=== PATIENT | female | born 1995 | race Caucasian/White ===

== ENCOUNTER 2025-01-20 11:30 | Observation (INO) | payer OTHER, SELFPAY ==
[2025-01-20] VITALS (21 sets, daily range): BP systolic 99–123; BP diastolic 59–79; PULSE 72–105; RESP 16–18; TEMP 35.5–36.7; O2SAT 97–100; BMI 39.0
--- NOTE | ~2025-01-20 | US_ITS ---
EXAMINATION: US abdomen limited DATE: 01/20/2025 14:45 INDICATION: Upper abdominal pain and vomiting. TECHNIQUE: Multiple grayscale and Doppler ultrasound images of the abdomen were obtained. COMPARISON: None FINDINGS: The pancreatic head and body are normal in appearance. The pancreatic tail is not visualized. Liver has normal contour, with a smooth surface. There is increased parenchymal echogenicity and coarsened echotexture consistent with diffuse hepatic steatosis. No liver lesion identified. No intrahepatic biliary duct dilation suspected. Portal venous flow was seen in the hepatopetal, normal direction and has normal Doppler waveform. The visualized proximal to mid inferior vena cava and aorta are normal. The gallbladder is normal in appearance. There is no cholelithiasis. The common bile duct measures 5 mm, which is normal. Sonographic Daniel sign was reported as negative by the cardiac sonographer.Visualized portion of the right kidney demonstrates normal contour and echogenicity with no hydronephrosis. IMPRESSION: 1. Diffuse hepatic steatosis. Otherwise normal right upper quadrant ultrasound. Reviewed, dictated and finalized at location A.
--- NOTE | 2025-01-20 11:51 | ECG_ITS ---
Test Date: 2025-01-20 12:07:06 Measurements Intervals [place] Rate: 92 P: 21 AK: 154 QRS: -1 QRSD: 100 T: 8 QT: 370 QTc: 459 Interpretive Statements SINUS RHYTHM DELAYED PRECORDIAL R/S TRANSITION CONSIDER INFERIOR INFARCT, AGE INDETERMINATE ABNORMAL ECG No previous ECG available for comparison Electronically Signed On 01-20-2025 12:25:25 CDT by David Betancourt D.O.
[2025-01-20 12:41] LABS: Hematocrit 41.4 % (37.0-47.0); Hemoglobin 13.5 g/dL (12.0-15.0); Immature Granulocyte Percent A 0.7 % (0-0.5); Lymphocytes Absolute Auto 1.50 K/mm3 (0.9-3.2); Mean Corpuscular HGB Conc 32.6 g/dl (32-36); Mean Corpuscular Hemoglobin 27.3 pg (26-34); Mean Corpuscular Volume 83.6 fl (80-100); Nucleated Red Blood Cells Absolute Auto 0.000 K/mm3 (0.0-0.012); Nucleated Red Blood Cells Perc 0.0 % (0.0-0.2); Platelet Count Result 261 k/mm3 (150-375); Red Blood Count 4.95 M/mm3 (4.2-5.4); White Blood Count 19.1 K/mm3 (4.5-10.0)
[2025-01-20 12:57] LABS: Alanine Aminotransferase 16 U/L (6-35); Albumin Level 4.4 g/dL (3.5-5.1); Alkaline Phosphatase 89 U/L (38-126); Anion Gap 14 mmol/L (4-12); Aspartate Amino Transferase 25 U/L (14-36); Bilirubin,Total 0.6 mg/dL (0.2-1.3); Blood Urea Nitrogen 6 mg/dL (7-17); Calcium 9.3 mg/dL (8.4-10.2); Carbon Dioxide 19 mmol/L (22-30); Chloride 104 mmol/L (98-107); Estimated CRCL calculation 138 ml/min; Estimated Glomerular Filt Rate > 60; Glucose 116 mg/dL (65-110); Lipase 63 U/L (23-300); Potassium 3.9 mmol/L (3.4-5.0); Sodium 137 mmol/L (137-145); Total Protein 8.4 g/dL (6.3-8.2)
--- NOTE | 2025-01-20 13:57 | ED.NAVMDI ---
HPI - Nausea/Vomiting/Diarrhea General Chief complaint: Nausea/Vomiting/Diarrhea Stated complaint: Abdominal pain, nausea, vomiting-14 wks Time Seen by Provider: 01/20/25 13:28 History of Present Illness HPI Narrative: This is a 29-year-old female with history of lupus antibodies who presents to the ED for nausea and vomiting. Patient states that a few hours prior to arrival, she began to have nausea and vomiting. She reported that this did begin last night but became significantly worse this morning. She tried taking her antiemetics aspirin with minimal relief. Vomitus has been stomach contents. No hematemesis. No diarrhea. She has had some upper and right upper quadrant abdominal pain. Has had her appendix removed but still has her gallbladder. Denies fevers, chills chest pain. Denies vaginal bleeding. Related Data Home Medications ?Medication ?Instructions ?Recorded ?Confirmed ?Last Taken ?Type aspirin 81 mg tablet,delayed 81 mg PO DAILY 01/20/25 01/20/25 Unknown History release enoxaparin 40 mg/0.4 mL 40 mg subcut QAM 01/20/25 01/20/25 Unknown History subcutaneous syringe folic acid 1 mg tablet 1 mg PO QID 01/20/25 01/20/25 Unknown History metoclopramide HCl 10 mg tablet 10 mg PO Q6H PRN nausea and 01/20/25 01/20/25 Unknown History vomiting ondansetron HCl 8 mg tablet 8 mg PO Q8H PRN nausea and vomiting 01/20/25 01/20/25 Unknown History progesterone micronized 200 mg 200 mg vaginal BID 01/20/25 01/20/25 Unknown History capsule Allergies Allergy/AdvReac Type Severity Reaction Status Date / Time Penicillins Allergy Intermediate Difficulty Verified 01/20/25 11:33 Breathing Sulfa (Sulfonamide Allergy Intermediate Difficulty Verified 01/20/25 11:33 Antibiotics) Breathing Review of Systems Review of Systems: Gen.: Denies fevers or chills Eyes: Denies eye pain or visual change ENT: Denies congestion Respiratory: Denies shortness of breath or cough CV: Denies chest pain or palpitations GI: As per HPI denies burning, urgency, frequency or hematuria Musculoskeletal: Denies back pain or muscle pain Neuro: Denies numbness, tingling, weakness or focal weakness Skin: Denies rash Except as documented, all other systems reviewed and negative Exam Narrative: APPEARANCE: No acute distress, nontoxic, resting in bed EYES: EOMI HEENT: Normocephalic, atraumatic, OMM RESPIRATORY: No respiratory distress Clear to auscultation bilaterally with no rhonchi wheezing or rales. CARDIOVASCULAR: Regular rate and rhythm without murmurs rubs or gallops. ABDOMINAL: Soft, tenderness to palpation to the epigastrium and to the right upper quadrant. Minimal tenderness to the suprapubic region. Uterus palpable just above the pubic symphysis. MUSCULOSKELETAl: Moves all extremities. No clubbing, cyanosis or edema. NEURO: Awake and alert. Following commands, speech normal, no focal deficits SKIN:: Warm, dry. No rashes lesions or abrasions PSYCHIATRIC: Normal affect/mood, Course Vital Signs Vital signs: Vital Signs Temperature 95.9 F L 01/20/25 11:37 Pulse Rate 105 H 01/20/25 11:37 Respiratory Rate 18 01/20/25 11:37 Blood Pressure 112/74 01/20/25 11:37 Pulse Oximetry 100 01/20/25 11:37 Oxygen Delivery Room Air 01/20/25 11:37 Temperature 95.9 F L 01/20/25 11:37 Pulse Rate 72 01/20/25 16:31 Respiratory Rate 18 01/20/25 11:37 Blood Pressure 123/79 01/20/25 16:31 Pulse Oximetry 98 01/20/25 17:45 Oxygen Delivery Room Air 01/20/25 11:37 MDM - Nausea/Vomiting/Diarrhea MDM Narrative Medical decision making narrative: 29-year-old female approximately 14 weeks by ultrasound presenting for nausea, vomiting, epigastric and right upper quadrant abdominal pain. On initial evaluation patient was in no acute distress, afebrile, hemodynamically stable. She did have tenderness palpation to the epigastrium and the right upper quadrant. Mucous membranes are mildly dry. Pre she was given Zofran, 1 L NS bolus. Right upper quadrant ultrasound was obtained which showed no cholecystitis but did show hepatic steatosis. Patient continue to nausea with vomiting so she was given Phenergan as well. She was feeling slightly better but was having headaches so she was given Tylenol but was unable to tolerate this. She was given additional Zofran but will require admission for intractable nausea vomiting. I discussed case with hospitalist who will admit the patient, does request OBGYN consultation. I discussed the case with Dr. Mosquera, recommends the patient be started on D5 half-normal saline but no other antiemetic recommendations at this time. Patient is agreeable to this plan. Differential Diagnosis Differential diagnosis: Likely food poisoning, gastroenteritis and other (cholecystitis, hyperemesis gravidarum) Medical Records Attestation: I reviewed the patient's medical records. Lab Data Attestation: I reviewed the patient's lab results. 01/20/25 12:21 01/20/25 12:21 Labs: Lab Results 01/20/25 01/20/25 Range/Units 12:21 15:40 WBC 19.1 H (4.5-10.0) K/mm3 RBC 4.95 (4.2-5.4) M/mm3 Hgb 13.5 (12.0-15.0) g/dL Hct 41.4 (37.0-47.0) % MCV 83.6 (80-100) fl MCH 27.3 (26-34) pg MCHC 32.6 (32-36) g/dl RDW 13.9 (11.5-14.5) % Plt Count 261 (150-375) k/mm3 MPV 10.2 (7.4-10.4) fl Immature Gran % (Auto) 0.7 H (0-0.5) % Neut % (Auto) 84.2 H (45.5-73.1) % Lymph % (Auto) 7.9 L (18.3-44.2) % [place] % (Auto) 6.2 (2.6-8.5) % Eos % (Auto) 0.7 (0-4.4) % Baso % (Auto) 0.3 (0.2-1.2) % Lymph # (Auto) 1.50 (0.9-3.2) K/mm3 [place] # (Auto) 1.2 H (0.1-0.6) K/mm3 Eos # (Auto) 0.1 (0-0.3) K/mm3 Baso # (Auto) 0.1 (0.0-0.1) K/mm3 Abs Immat Gran (auto) 0.13 H (0.00-0.031) K/mm3 Absolute Neuts (auto) 16.1 H (1.3-6.7) K/mm3 Absolute Nucleated RBC 0.000 (0.0-0.012) K/mm3 Nucleated RBC % 0.0 (0.0-0.2) % Sodium 137 (137-145) mmol/L Potassium 3.9 (3.4-5.0) mmol/L Chloride 104 (98-107) mmol/L Carbon Dioxide 19 L (22-30) mmol/L Anion Gap 14 H (4-12) mmol/L BUN 6 L (7-17) mg/dL Creatinine 0.58 L (0.7-1.0) mg/dL Estim Creat Clear Calc 138 ml/min Estimated GFR > 60 (59 - ) Glucose 116 H (65-110) mg/dL Calcium 9.3 (8.4-10.2) mg/dL Total Bilirubin 0.6 (0.2-1.3) mg/dL AST 25 (14-36) U/L ALT 16 (6-35) U/L Alkaline Phosphatase 89 (38-126) U/L Total Protein 8.4 H (6.3-8.2) g/dL Albumin 4.4 (3.5-5.1) g/dL Lipase 63 (23-300) U/L Urine Color Dark yellow (Yellow) Urine Appearance Cloudy H (Clear) Urine pH 5.5 (5.0-9.0) Ur Specific [place] 1.033 (1.001-1.035) Urine Protein 1+ H (Negative) mg/dL Urine Glucose (UA) Negative (Negative) mg/dL Urine Ketones 4+ H (Negative) mg/dL Ur Blood (Man) Negative (Negative) Urine Nitrate Negative (Negative) Urine Bilirubin Negative (Negative) Urine Urobilinogen 1.0 (<2.0) mg/dL Add Ur Microanalysis Reviewed Leukocyte Esterase Rfl Negative (Negative) KIRTI/UL Urine RBC 0-2 (0-2) /hpf Urine WBC 0-5 (0-3) /hpf Ur Squamous Epith Cells Moderate (Few) /hpf Urine Bacteria Rare /hpf Urine Casts 3-5 Urine Mucus Present /lpf Imaging Data Attestation: I personally reviewed and interpreted this imaging study as follows: Radiologist's impression: Impressions Abdomen Ultrasound 01/20/25 14:49 IMPRESSION: 1. Diffuse hepatic steatosis. Otherwise normal right upper quadrant ultrasound. Discharge Plan Discharge Clinical Impression: Intractable nausea and vomiting, Second trimester Patient Disposition: Still a Patient Condition: Stable
[2025-01-20] MEDS: SODIUM CHLORIDE 0.9% IV 1,000 ML 999 ML IV CONT (15:14)
[2025-01-20] MEDS: ONDANSETRON INJ 4 MG/2 ML VIAL IV PUSH ×2 (15:15→17:27)
[2025-01-20] MEDS: PROMETHAZINE HCL 25 MG/ML AMPUL 12.5 MG IV PUSH (15:18)
[2025-01-20 16:10] LABS: Add Urine Microscopic? YES; Appearance Urine Cloudy (Clear); Glucose Urine UA Negative (Negative); Leukocyte Esterase Ur Negative LEU/UL (Negative); Need Manual Microscopic Reviewed; Nitrate Urine Negative (Negative); Specific Grav Ur 1.033 (1.001-1.035)
[2025-01-20] MEDS: ACETAMINOPHEN 500 MG TABLET 1000 MG PO (16:54)
--- NOTE | 2025-01-20 16:55 | PC.NURSE ---
Pt vomited PO tylenol that was given, pills visible in emesis bag.
[2025-01-20] MEDS: DEXTROSE 5%/0.45% SOD CHL 1,000 ML 100 ML IV CONT (18:25)
--- NOTE | 2025-01-20 18:43 | ADMGEN ---
This patient, Edvin Townsend, was admitted to Medical Room 342-01. Patient/family oriented to hospital policies and general routines including ID bracelet, bed and alarms, visiting hours, pain management, procedures, bathroom and other care routines, personal items, smoking policy, room service/diet, and visiting hours. Information on how to activate the Rapid Response Team has been discussed. Patient/Family are encouraged to report perceived risks to care and to ask questions if they do not understand what they are told or what they should do.
[2025-01-21 00:08] LABS: Hematocrit 31.6 % (37.0-47.0); Hemoglobin 10.4 g/dL (12.0-15.0); Immature Granulocyte Percent A 1.3 % (0-0.5); Lymphocytes Absolute Auto 2.13 K/mm3 (0.9-3.2); Mean Corpuscular HGB Conc 32.9 g/dl (32-36); Mean Corpuscular Hemoglobin 27.4 pg (26-34); Mean Corpuscular Volume 83.4 fl (80-100); Nucleated Red Blood Cells Absolute Auto 0.000 K/mm3 (0.0-0.012); Nucleated Red Blood Cells Perc 0.0 % (0.0-0.2); Platelet Count Result 195 k/mm3 (150-375); Red Blood Count 3.79 M/mm3 (4.2-5.4); White Blood Count 8.3 K/mm3 (4.5-10.0)
[2025-01-21 00:13] LABS: Alanine Aminotransferase 14 U/L (6-35); Albumin Level 3.5 g/dL (3.5-5.1); Alkaline Phosphatase 63 U/L (38-126); Anion Gap 8 mmol/L (4-12); Aspartate Amino Transferase 20 U/L (14-36); Bilirubin,Total 0.6 mg/dL (0.2-1.3); Blood Urea Nitrogen 5 mg/dL (7-17); Calcium 8.3 mg/dL (8.4-10.2); Carbon Dioxide 20 mmol/L (22-30); Chloride 105 mmol/L (98-107); Estimated CRCL calculation 170 ml/min; Estimated Glomerular Filt Rate > 60; Glucose 92 mg/dL (65-110); Magnesium 1.8 mg/dL (1.6-2.3); Potassium 3.3 mmol/L (3.4-5.0); Sodium 133 mmol/L (137-145); Total Protein 6.6 g/dL (6.3-8.2)
[2025-01-21 00:20] LABS: Procalcitonin 0.4 ng/mL
[2025-01-21] MEDS: KCL 20 MEQ/SW 100 ML 100 ML 50 MEQ IVPB (01:39)
[2025-01-21] MEDS: POTASSIUM CHLORIDE INJ 20 MEQ in SODIUM CHLORIDE 0.9% IV 500 ML 255 MEQ IVPB (03:11)
[2025-01-21 04:58] VITALS: BP 92/60; PULSE 74; RESP 18; TEMP 36.7; O2SAT 100
[2025-01-21] MEDS: KCL 40 MEQ/D5 1/2NS 1,000 ML 100 ML IV CONT (05:13)
[2025-01-21] MEDS: ASPIRIN 81 MG ENTERIC TABLET PO (08:56)
[2025-01-21] MEDS: ENOXAPARIN 40 MG/0.4 ML SYRINGE SUB-Q (08:56)
[2025-01-21] MEDS: FOLIC ACID 1 MG TABLET PO (08:56)
--- NOTE | 2025-01-21 09:29 | PM.IMHP ---
H&P: HPI History of Present Illness Date/Time: 01/21/25 09:29 Chief Complaint: Vomiting. Narrative: 29 y/o at 14 weeks gestation here with nausea and vomiting. She sees Dr. Sepulveda. She has antiphospholipid antibody syndrome and says she also has an MTHFR gene mutation. She takes Lovenox and aspirin, as well as Prometrium 200 mg po bid. She had a worsening of nausea and vomiting yesterday and just couldn't keep anything down. She typically takes Zofran 8 mg at home. She hasn't had a bowel movement in 5 days. No fever. No bleeding. Some epigastric soreness. Review of Systems Review of Systems: All systems reviewed & are unremarkable except as noted in HPI and below PMFSH Past Medical History Medical History MTHFR gene mutation Antiphospholipid antibody syndrome Recurrent loss Family History Family History Mother Lupus (systemic lupus erythematosus) Aortic valve, bicuspid Social History Social History Smoking status: Never smoker Second hand tobacco smoke exposure: No Alcohol intake: never Substance use: never Substance use type: does not use Lack of Transportation: No Lack of Food: Never True Current Housing: I Have Housing Concerned About Future Housing: No Difficulty Paying Gas/Electric Bills: No Difficulty Paying for Meds: No Currently Unemployed: No Education: High School Diploma/GED Difficulty w/ Childcare or Family Care: No Spiritual care concerns: No Meds Home Medications and Allergies Home Medications ?Medication ?Instructions ?Recorded ?Confirmed ?Type aspirin 81 mg tablet,delayed 81 mg PO DAILY 01/20/25 01/20/25 History release enoxaparin 40 mg/0.4 mL 40 mg subcut QAM 01/20/25 01/20/25 History subcutaneous syringe folic acid 1 mg tablet 1 mg PO QID 01/20/25 01/20/25 History metoclopramide HCl 10 mg tablet 10 mg PO Q6H PRN nausea and 01/20/25 01/20/25 History vomiting ondansetron HCl 8 mg tablet 8 mg PO Q8H PRN nausea and vomiting 01/20/25 01/20/25 History progesterone micronized 200 mg 200 mg vaginal BID 01/20/25 01/20/25 History capsule Allergies Allergy/AdvReac Type Severity Reaction Status Date / Time Penicillins Allergy Intermediate Difficulty Verified 01/20/25 11:33 Breathing Sulfa (Sulfonamide Allergy Intermediate Difficulty Verified 01/20/25 11:33 Antibiotics) Breathing Vital Signs Vital Signs - 24 hr 01/20/25 11:37 01/20/25 12:11 01/20/25 12:12 Temperature 95.9 F L Pulse Rate 105 H 91 88 Respiratory Rate 18 Blood Pressure 112/74 100/68 99/66 L Pulse Oximetry 100 Oxygen Delivery Room Air 01/20/25 13:29 01/20/25 13:30 01/20/25 13:31 Temperature Pulse Rate Respiratory Rate Blood Pressure 113/73 Pulse Oximetry 100 100 99 Oxygen Delivery 01/20/25 15:39 01/20/25 15:40 01/20/25 15:45 Temperature Pulse Rate Respiratory Rate Blood Pressure 100/60 Pulse Oximetry 100 100 99 Oxygen Delivery 01/20/25 16:00 01/20/25 16:01 01/20/25 16:15 Temperature Pulse Rate Respiratory Rate Blood Pressure 106/59 L Pulse Oximetry 97 97 100 Oxygen Delivery 01/20/25 16:30 01/20/25 16:31 01/20/25 16:45 Temperature Pulse Rate 72 Respiratory Rate Blood Pressure 123/79 Pulse Oximetry 98 98 97 Oxygen Delivery 01/20/25 17:07 01/20/25 17:15 01/20/25 17:30 Temperature Pulse Rate Respiratory Rate Blood Pressure Pulse Oximetry 99 99 97 Oxygen Delivery 01/20/25 17:45 01/20/25 21:09 01/20/25 23:00 Temperature 98.1 F Pulse Rate 78 74 Respiratory Rate 16 18 Blood Pressure 104/65 Pulse Oximetry 98 98 100 Oxygen Delivery Room Air 01/21/25 04:58 Temperature 98.0 F Pulse Rate 74 Respiratory Rate 18 Blood Pressure 92/60 L Pulse Oximetry 100 Oxygen Delivery Exam Const: Other: Well-developed, well-nourished female in no acute distress. GI: Other: ABD: Soft, nondistended, gravid. Mild epigastric tenderness. No guarding or rebound tenderness. No hepatosplenomegaly. heartbeat auscultated. Uterine fundus c/w 14 weeks. FHR auscultated at 150 bpm. : Other: Deferred. Extrem: Other: Extremities: nontender with no edema Psych: Other: Mental status grossly normal, with normal mood and affect. H&P: Results Labs Labs: Short CBC 01/20/25 01/20/25 Range/Units 12:21 23:38 WBC 19.1 H 8.3 (4.5-10.0) K/mm3 Hgb 13.5 10.4 L D (12.0-15.0) g/dL Hct 41.4 31.6 L (37.0-47.0) % Plt Count 261 195 (150-375) k/mm3 BMP 01/20/25 01/20/25 12:21 23:38 Sodium 137 133 L Potassium 3.9 3.3 L Chloride 104 105 Carbon Dioxide 19 L 20 L BUN 6 L 5 L Creatinine 0.58 L 0.46 L Glucose 116 H 92 Calcium 9.3 8.3 L Liver Function 01/20/25 01/20/25 Range/Units 12:21 23:38 Total Bilirubin 0.6 0.6 (0.2-1.3) mg/dL AST 25 20 (14-36) U/L ALT 16 14 (6-35) U/L Alkaline Phosphatase 89 63 (38-126) U/L Albumin 4.4 3.5 (3.5-5.1) g/dL Urine 01/20/25 Range/Units 15:40 Urine Color Dark yellow (Yellow) Urine Appearance Cloudy H (Clear) Urine pH 5.5 (5.0-9.0) Ur Specific [place] 1.033 (1.001-1.035) Urine Protein 1+ H (Negative) mg/dL Urine Glucose (UA) Negative (Negative) mg/dL Assessment and Plan Assessment and plan (1) Nausea and vomiting during : Code(s): O21.9 - Vomiting of , unspecified Status: Acute Assessment and Plan: A: Nausea and vomiting in , improved after hydration and antiemetics. P: May go home on home Zofran. Add famotidine 20 mg po bid. Also try milk of magnesia for constipation. f/u with Dr. Sepulveda as scheduled. We reviewed instructions and precautions in detail.
[2025-01-21 09:31] VITALS: BP 108/50
[2025-01-21] MEDS: FAMOTIDINE 20 MG TABLET PO (09:40)
[2025-01-21] MEDS: ONDANSETRON HCL ODT 4 MG TABLET PO (09:40)
--- NOTE | 2025-02-04 03:08 | PM.DS ---
DS: Admitting Diagnosis Discharge Date 01/21/25 Admitting Diagnosis Nausea and vomiting in DS: Discharge Diagnosis Discharge Diagnosis (1) Nausea and vomiting during : Code(s): O21.9 - Vomiting of , unspecified Status: Acute DS: Summary Hospital Course Hospital Course: She was admitted for observation through the ED for nausea and vomiting at 14 weeks . After IVF and antiemetics, she felt better and was able to go home. Time Spent with Patient Time attestation: Total time spent providing and/or coordinating discharge services: Discharge Plan Discharge Attending physician on discharge: Garcia Murphy Oca Consulting providers: Chris Mosquera; David Betancourt; Allen Jean Discharging Clinician: Chris Mosquera Patient Disposition: Home Activity: as tolerated Diet: as tolerated Discharge Instructions: Call or return if temperature above 100.4? F, increased abdominal pain, vaginal bleeding or any new problems. Patient Language: [place] Stand Alone Forms: General Discharge Information, Work/School Release IP Follow-up/Referrals: Ulises,Ever Matt MD [Primary Care Provider, Unknown] - Keep Reg. Scheduled Appt. Discharge Medications: Continued aspirin 81 mg tablet,delayed release (DR/EC) 81 mg PO DAILY enoxaparin 40 mg/0.4 mL syringe 40 mg subcut QAM folic acid 1 mg tablet 1 mg PO QID metoclopramide HCl 10 mg tablet 10 mg PO Q6H PRN (Reason: nausea and vomiting) ondansetron HCl 8 mg tablet 8 mg PO Q8H PRN (Reason: nausea and vomiting) progesterone micronized 200 mg capsule 200 mg vaginal BID Date of admission: 01/20/25 18:52 Primary Care Provider: Ever Charles Admitting Provider: Garcia Murphy Oca Attending physician on admission: Garcia Murphy Oca Condition: Stable
== END 2025-01-21 12:55 | disposition home or self-care (01) ==
LOC: ANHED 14:59 → ANH3MED 01-21 09:39
PROVIDERS: Emergency Medicine; General Practice; Admitting Provider Student in an Organized Health Care Education/Training Program; Emergency Provider Student in an Organized Health Care Education/Training Program; PCP Obstetrics & Gynecology; Visit Provider Student in an Organized Health Care Education/Training Program
DX: O21.9 Vomiting of pregnancy, unspecified (principal); Z3A.14 14 weeks gestation of pregnancy; O26.22 Pregnancy care for patient with recurrent pregnancy loss, second trimester; E72.12 Methylenetetrahydrofolate reductase deficiency; O99.282 Endocrine, nutritional and metabolic diseases complicating pregnancy, second trimester; D68.61 Antiphospholipid syndrome; Z79.82 Long term (current) use of aspirin; Z79.01 Long term (current) use of anticoagulants; Z82.69 Family history of other diseases of the musculoskeletal system and connective tissue; Z82.49 Family history of ischemic heart disease and other diseases of the circulatory system
CPT/HCPCS: 36415; 76705; 80053; 81001; 83690; 83735; 84100; 84145; 85025; 93005; 96361; 96365; 96366; 96372; 96374; 96375; 96376; 99285; A9270; G0378; G0379; J1650; J2405; J2550; J3480; J7030; J7040